=== PATIENT | female | born 1995 | race Caucasian/White ===

== ENCOUNTER 2019-09-01 09:49 | Emergency (ER) | payer MEDICAID ==
[~2019-09-01] VITALS: Ht 170.2 cm; Wt 75.0 kg
[2019-09-01] MEDS ORDERED: AMOXICILLIN875 MG PO (10:13)
[2019-09-01 10:20] VITALS: BP 133/65; PULSE 110; TEMP 98.8
== END 2019-09-01 10:20 | disposition home or self-care (01) ==
LOC: COL.ER 09:49
DX: J02.9 Acute pharyngitis, unspecified (principal)
CPT/HCPCS: J1100